=== PATIENT | female | born 1965 | race African-American/Black ===

== ENCOUNTER 2016-11-27 15:10 | Emergency (ER) | payer MEDICARE, MEDICAID ==
[~2016-11-27] VITALS: Ht 165.1 cm; Wt 70.0 kg
[~2016-11-27 15:10] MED LIST: ASPI-785 PO; CLOP75TA15 PO; LEVO40CA PO; LEVO75CA2 PO; LISI10TA5 PO; LORA1TAB PO; METF1000 PO; MOME13HF2 IH; SIMV10TA6 PO; TOPI-35 PO
[2016-11-27] MEDS ORDERED: NEXIUM (15:21)
[2016-11-27] MEDS ORDERED: LEVOTHYROXINE (15:21)
[2016-11-27] MEDS ORDERED: ONDANSETRON HCL 4MG/2ML VIAL IV STA (16:13)
[2016-11-27] MEDS ORDERED: SODIUM CHLORIDE 0.9% 1,000 ML IV ONE (16:13)
[2016-11-27] MEDS ORDERED: MAGNESIUM/ALUMINUM HYDROXIDE/SIMETHICONE 30ML UDC PO STA (16:13)
[2016-11-27] MEDS ORDERED: VISCOUS LIDOCAINE 2% 15 ML UDC PO STA (16:13)
[2016-11-27 16:39] LABS: CHLORIDE 101 mEq/L (98-107)
[2016-11-27 16:43] LABS: BASOPHILS % 0.4 % (0.0-2.0); EOSINOPHILS % 1.4 % (0.0-5.0); HEMATOCRIT. 46.1 % (36.0-48.0); HEMOGLOBIN. 15.5 g/dL (12.0-16.0); LYMPHOCYTES % 31.7 % (20.0-50.0); MEAN CORPUSCULAR HEMOGLOBIN 29.9 pg (28.0-32.0); MEAN CORPUSCULAR VOLUME 88.8 fL (81.0-99.0); MEAN PLATELET VOLUME 8.9 fl (7.4-10.4); MONOCYTES % 7.7 % (2.0-8.0); NEUTROPHILS % 58.8 % (40.0-76.0); PLATELET 224 x1000/uL (130-400); RED BLOOD CELL COUNT 5.19 mill/uL (4.2-5.4); RED CELL DISTRIBUTION WIDTH 13.1 % (11.6-14.6)
[2016-11-27 16:45] LABS: CARBON DIOXIDE 22 mEq/L (21-32)
[2016-11-27 16:48] LABS: HCG SCREEN NEGATIVE
[2016-11-27] MEDS ORDERED: MORPHINE SULFATE 4 MG/ML CPJ (NOT FOR IM USE) IV ONE ×2 (17:15→20:00)
[2016-11-27 19:34] LABS: CLARITY URINE CLEAR (CLEAR); COLOR URINE YELLOW (YELLOW); GLUCOSE URINE 3+ (NEGATIVE); KETONES URINE 1+ (NEGATIVE); LEUKOCYTE ESTERASE URINE NEGATIVE (NEGATIVE); NITRITE URINE NEGATIVE (NEGATIVE); OCCULT BLOOD URINE NEGATIVE (NEGATIVE); PH URINE 6.5 (4.5-8.0); PROTEIN URINE NEGATIVE (NEGATIVE); SPECIFIC GRAVITY URINE 1.016 (1.005-1.030); UROBILINOGEN URINE 0.2 E.U./dL (0.2-1.0)
[2016-11-27 19:54] LABS: *AMPHETAMINES SCREEN URINE NEGATIVE (NEGATIVE); *BARBITURATES SCREEN URINE NEGATIVE (NEGATIVE); *BENZODIAZEPINES SCREEN URINE NEGATIVE (NEGATIVE); *COCAINE SCREEN URINE PRESUMTIVE POSITIVE (NEGATIVE); CANNABINOID URINE SCREEN NEGATIVE (NEGATIVE); METHADONE URINE SCREEN NEGATIVE (NEGATIVE); OPIATES URINE SCREEN PRESUMTIVE POSITIVE (NEGATIVE); PHENCYCLIDINE URINE SCREEN NEGATIVE (NEGATIVE)
[2016-11-27 20:45] VITALS: BP 130/77
== END 2016-11-27 20:50 | disposition home or self-care (01) ==
LOC: ER 15:32
DX: K85.90 Acute pancreatitis without necrosis or infection, unspecified (principal); R10.9 Unspecified abdominal pain; K76.0 Fatty (change of) liver, not elsewhere classified; F17.210 Nicotine dependence, cigarettes, uncomplicated; R16.0 Hepatomegaly, not elsewhere classified; E07.9 Disorder of thyroid, unspecified; Q63.1 Lobulated, fused and horseshoe kidney; J45.909 Unspecified asthma, uncomplicated; E11.9 Type 2 diabetes mellitus without complications; Z88.0 Allergy status to penicillin; Z88.2 Allergy status to sulfonamides; Z88.6 Allergy status to analgesic agent; Z87.11 Personal history of peptic ulcer disease; Z86.73 Personal history of transient ischemic attack (TIA), and cerebral infarction without residual deficits; Z98.51 Tubal ligation status; N13.30 Unspecified hydronephrosis
CPT/HCPCS: 36415; 76705; 80053; 80305; 81001; 83690; 84703; 85025; 96361; 96374; 96375; 96376; 99285; G0482; J2270; J2405; J7030

== ENCOUNTER 2017-01-22 14:39 | Emergency (ER) | payer MEDICARE, MEDICAID ==
[~2017-01-22] VITALS: Ht 165.1 cm; Wt 68.0 kg
[~2017-01-22 14:39] MED LIST changes: -ASPI-785 PO; -CLOP75TA15 PO; -LEVO40CA PO; +LEVOTHYROXINE; -LISI10TA5 PO; -LORA1TAB PO; -MOME13HF2 IH; +NEXIUM; -SIMV10TA6 PO; -TOPI-35 PO
[2017-01-22 14:50] VITALS: BP 123/79
== END 2017-01-22 19:27 | disposition left against medical advice (07) ==
LOC: ER 15:46
DX: M54.5 Low back pain (principal); R30.0 Dysuria; R11.0 Nausea; Z53.21 Procedure and treatment not carried out due to patient leaving prior to being seen by health care provider